=== PATIENT | female | born 1995 | race Caucasian/White ===

== ENCOUNTER 2021-04-04 10:53 | Emergency (ER) | payer BC, OTHER, SELFPAY ==
[2021-04-04 11:53] VITALS: BP 108/78; PULSE 95; RESP 20; O2SAT 99
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
[2021-04-04 15:02] LABS: Basophils Absolute Auto 0.1 K/mm3 (0.0-0.1); Basophils Percent Auto 0.3 % (0.2-1.2); Hematocrit 35.7 % (37.0-47.0); Hemoglobin 11.6 g/dL (12.0-15.0); Immature Granulocyte Percent A 0.5 % (0-0.5); Lymphocytes Percent Auto 12.9 % (18.3-44.2); Mean Corpuscular HGB Conc 32.5 g/dl (32-36); Mean Corpuscular Hemoglobin 28.6 pg (26-34); Mean Corpuscular Volume 87.9 fl (80-100); Monocytes Absolute Auto 0.7 K/mm3 (0.1-0.6); Monocytes Percent Auto 3.6 % (2.6-8.5); Neutrophils Absolute Auto 16.7 K/mm3 (1.3-6.7); Neutrophils Percent Auto 82.7 % (45.5-73.1); Platelet Count Result 407 k/mm3 (150-375); Red Blood Count 4.06 M/mm3 (4.2-5.4); Red Cell Distribution Width 13.8 % (11.5-14.5); White Blood Count 20.1 K/mm3 (4.5-10.0)
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
[2021-04-04 15:13] LABS: Alanine Aminotransferase 17 U/L (4-35); Albumin Level 4.5 g/dL (3.5-5.1); Alkaline Phosphatase 104 U/L (38-126); Anion Gap 12 mmol/L (8-16); Aspartate Amino Transferase 26 U/L (14-36); Bilirubin,Total 1.1 mg/dL (0.2-1.3); Blood Urea Nitrogen 14 mg/dL (7-17); Calcium 9.4 mg/dL (8.4-10.2); Carbon Dioxide 20 mmol/L (22-30); Chloride 105 mmol/L (98-107); Estimated CRCL calculation 100 ml/min; Estimated Glomerular Filt Rate > 60; Glucose 117 mg/dL (65-110); Potassium 3.9 mmol/L (3.4-5.0); Sodium 137 mmol/L (137-145)
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
[2021-04-04 15:35] LABS: Add Urine Microscopic? YES; Appearance Urine Cloudy (Clear); Bacteria Urine Trace /hpf; Bilirubin Urine Negative (Negative); Blood Urine 3+ (Negative); Color Urine Yellow (Yellow); Glucose Urine UA Negative (Negative); Ketones Urine Negative (Negative); Leukocyte Esterase Ur 2+ LEU/UL (Negative); Mucus Urine Heavy /lpf; Nitrate Urine Negative (Negative); Protein Urine 2+ mg/dL (Negative); RBC Urine >75 /hpf (0-2); Specific Grav Ur 1.028 (1.001-1.035); Squamous Epithelial Cell Urine Few /hpf (Few); Urobilinogen Urine Negative mg/dL (<2.0); WBC Urine 16-20 /hpf
[2021-04-04] MEDS: ULIPRISTAL ACETATE 30 MG TABLET PO (15:59)
[2021-04-04] MEDS: ONDANSETRON HCL ODT 4 MG TABLET PO (16:00)
[2021-04-04] MEDS: metroNIDAZOLE 250 MG TABLET 2000 MG PO (16:01)
[2021-04-04] MEDS: AZITHROMYCIN 250 MG TABLET 1000 MG PO (16:01)
[2021-04-04] MEDS: cefTRIAXone 1 GM VIAL 0.5 GM IM (16:02)
[2021-04-04] MEDS: LIDOCAINE HCL 1% LOCAL INJ 20 ML VIAL 2.1 ML XX (16:03)
[2021-04-04 16:55] VITALS: BP 122/78; PULSE 80; RESP 20; O2SAT 99
--- NOTE | 2021-04-06 10:28 | PC.NURSE ---
Obtained Kit K# from Detective Celaya at [facility] and updated this kit's status in [facility].
[2021-04-08 17:21] LABS: HIV 1 RNA PCR <1.30 Log cps/mL; HIV 1 RNA PCR <20 Copies/mL
== END 2021-04-04 16:57 | disposition home or self-care (01) ==
PROVIDERS: Emergency Provider Emergency Medicine; PCP Family Medicine
DX: T74.21XA Adult sexual abuse, confirmed, initial encounter (principal); S31.41XA Laceration without foreign body of vagina and vulva, initial encounter; F17.210 Nicotine dependence, cigarettes, uncomplicated; Y07.59 Other non-family member, perpetrator of maltreatment and neglect; F31.9 Bipolar disorder, unspecified
CPT/HCPCS: 36415; 80053; 81001; 81025; 85025; 87086; 87088; 87491; 87536; 87591; 87808; 96372; 99285; A9270; J0696

== ENCOUNTER 2021-05-08 14:11 | Emergency (ER) | payer BC, SELFPAY ==
[2021-05-08 14:19] VITALS: BP 133/79; PULSE 101; RESP 16; TEMP 36.8; O2SAT 99
--- NOTE | 2021-05-08 14:49 | ED.URI ---
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 Patient denies any known fevers chills or sweats, denies any body aches, has had COVID vaccinations. Patient states that she has been taking some Robitussin for her cough and also some DayQuil for her nasal drainage and stuffiness. patient states that she has noted some dyspnea with cough and after exertion. Patient noted to have scattered wheezing on auscultation with no tachypnea or any accessory muscle use noted, SAO2 99% on room air. MD elicited complaint: cough and other (some dyspnea) Onset (ago): day(s) (4) Related Data Home Medications Medication Instructions Recorded Confirmed lamotrigine 100 mg tablet 100 mg PO DAILY 08/14/19 04/04/21 atomoxetine 25 mg capsule 25 mg PO cap 06/24/20 04/04/21 Allergies Allergy/AdvReac Type Severity Reaction Status Date / Time No Known Allergies Allergy Unverified 03/31/21 10:01 Review of Systems Review of Systems: CONSTITUTIONAL: Denies fever, chills, or sweats. EYES: Denies visual changes, redness, or discharge. ENT: Positive for rhinorrhea, congestion,no sore throat, or otalgia. CARDIOVASCULAR: Denies chest pain, palpitations, or edema. RESPIRATORY: Positive cough or dyspnea with exertion or acute cough GASTROINTESTINAL: Denies abdominal pain, nausea, vomiting, or diarrhea. GENITOURINARY: Denies dysuria or hematuria. SKIN: Denies rash or itching. MUSCULOSKELETAL: Denies back pain, joint pain, or myalgia. NEUROLOGIC: Denies headache, numbness, or weakness. PSYCHIATRIC: Positive for history of anxiety or depression. All systems reviewed & are unremarkable except as noted in HPI and below PMFSH Past Medical History Medical History (Updated 05/08/21 @ 14:58 by Juliana Lloyd NP) Bipolar disorder, curr episode manic w/o psychotic features, moderate MDD (major depressive disorder), recurrent episode, moderate Surgical History Surgical History (Updated 05/08/21 @ 19:39 by Juliana Lloyd NP) No history of previous surgery Family History Family History (Updated 05/08/21 @ 19:40 by Juliana Lloyd NP) Other No significant family history Social History Social History Social History: Single Years smoked: 4 Smoking status: Light tobacco smoker Tobacco type: cigarettes Second hand tobacco smoke exposure: Yes Alcohol intake: current Drinks per week: 4 Substance use: never Substance use type: does not use Gender identity (if verbalized by the patient): Female Sexual Orientation (if Verbalized by the Patient): Straight or Heterosexual Comments At time of signature, agree with nursing past medical, surgical, social and family history. There is no relevant family history pertinent to the presenting complaint Exam Narrative: GENERAL: Well-appearing, well-nourished, and in no acute distress. HEAD: Normocephalic, atraumatic. EYES: PERRLA and EOMI. ENT: Nares red with clear rhinorrhea no epistaxis. Mucous membranes moist.TM's normal with good light reflex, throat pink with no exudates or lesions, tonsil enlarged with post nasal drainage NECK: Supple. no lymphadenopathy CHEST: Scattered wheezing throughout lung galvan on auscultation. No acute respiratory distress.SAO2 99% on room air. no tachypnea or accessory muscle use. HEART: Regular rate and rhythm. No murmur heard. Normal peripheral pulses. ABDOMEN: Soft, nontender, nondistended, normal active bowel sounds. EXTREMITIES: Normal range of motion. No e
== END 2021-05-08 15:07 | disposition home or self-care (01) ==
PROVIDERS: Emergency Provider Registered Nurse; PCP Family Medicine
DX: J40 Bronchitis, not specified as acute or chronic (principal); F17.210 Nicotine dependence, cigarettes, uncomplicated
CPT/HCPCS: 99213; G0463

== ENCOUNTER 2021-10-23 14:45 | Outpatient (RCR) | payer BC, SELFPAY ==
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
--- NOTE | 2021-10-09 16:35 | PCPTNOTE ---
Patient did not show up for scheduled appointment this date. Called and spoke with Pt. She apologized and had forgotten about appointment. Reminded Pt of upcoming appointment. This is Pt's first N/S.
--- NOTE | 2021-10-14 09:22 | PCPTNOTE ---
Patient called & cancelled scheduled appointment this date due to being sick.
--- NOTE | 2021-10-16 13:29 | PCPTNOTE ---
Patient called & cancelled scheduled appointment this date due to being sick. This is her 3rd missed visit.
--- NOTE | 2021-10-19 15:13 | PCPTNOTE ---
Patient did not show up for scheduled appointment this date. Informed Physical Therapist Pt has not been here since Eval on 10/06/21 due to no show/no call for 2 appointments and Canceling 2 appointments. Physical Therapist is going to call Pt about discharging from therapy.
--- NOTE | 2021-10-19 15:41 | PCPTNOTE ---
Patient did not show up for scheduled appointment this date. Called pt who states she forgot about her appt today. Reminded her of her next visits. Informed her if she did not attend she will be discharged from therapy.
--- NOTE | 2021-10-27 14:53 | PCPTNOTE ---
Patient did not show up for scheduled appointment this date. Will DC therapy services.
--- NOTE | 2021-10-27 14:53 | PCPTNOTE ---
Admitting Provider: Attending Provider: Soham Mix MD Patient:Ruby Canela Date of :1995 Physical Therapy Discharge Summary Patient has not returned for any further treatments since 10/23/2021, therefore she will be discharged at this time. Patient?s initial visit was on 10/06/2021 she had a total of 2 visits with 5 canceled or no show visits. The goals have been not met due to limited attendance with therapy. Thank you for referring this patient to [facility]. Please review, sign, date and return this discharge summary SANDRA. I have been updated about the patient's current status and I agree with discharge from the above service at this time. Referring Physician Date
== END 2021-10-28 11:04 | disposition home or self-care (01) ==
LOC: ANHPT 14:45
PROVIDERS: PCP Family Medicine; Visit Provider Orthopaedic Surgery
DX: M22.41 Chondromalacia patellae, right knee (principal); M70.61 Trochanteric bursitis, right hip
CPT/HCPCS: 97110; 97140; 97162; 97530

== ENCOUNTER 2021-11-23 13:53 | Outpatient (CLI) | payer BC, SELFPAY ==
--- NOTE | ~2021-11-23 | XR_ITS ---
EXAMINATION: XR ankle RT min 3V DATE: 11/23/2021 14:12 INDICATION: Right ankle pain. Injury. TECHNIQUE: 4 views of right ankle were obtained. COMPARISON: None. FINDINGS: Bone alignment is normal. No fracture. Joint spaces are well maintained. There is ankle sof t tissue swelling. IMPRESSION: 1. No fracture. Reviewed, dictated and finalized at location B. IMPRESSION: 1. No fracture.
== END 2021-11-23 13:54 | disposition home or self-care (01) ==
LOC: ANHIMG 14:00
PROVIDERS: PCP Family Medicine; Visit Provider Nurse Practitioner Gerontology
DX: M25.571 Pain in right ankle and joints of right foot (principal)
CPT/HCPCS: 73610

== ENCOUNTER 2022-02-05 15:33 | Outpatient (CLI) | payer BC, SELFPAY ==
--- NOTE | ~2022-02-05 | US_ITS ---
EXAMINATION: US OB <=14 wk fetus w TV DATE: 02/05/2022 16:35 INDICATION: Pelvic pain. Amenorrhea. TECHNIQUE: Real-time transabdominal and transvaginal obstetric ultrasound. FINDINGS: No prior studies for comparison. There is an intrauterine gestational sac, with pole identified. The crown rump length measures 0.96, which correlates with a estimated gestational age of 7 weeks 0 days. heart tones are i dentified measuring 125 BPM. The ovaries are within normal limits. Right ovary measures 2.2 x 1.9 x 1 .5 cm. Left ovary measures 2.7 x 1.2 x 1.9 cm. IMPRESSION: 1. SL IUP with an EGA of 7 weeks, 0 days (EDC by current ultrasound of 09/24/2022). Reviewed, dictated and finalized at location A. IMPRESSION: 1. SL IUP with an EGA of 7 weeks, 0 days (EDC by current ultrasound of 09/25/19).
== END 2022-02-05 15:34 | disposition home or self-care (01) ==
PROVIDERS: PCP Family Medicine; Visit Provider Family Medicine
DX: N91.2 Amenorrhea, unspecified (principal); Z3A.01 Less than 8 weeks gestation of pregnancy
CPT/HCPCS: 76801; 76817